=== PATIENT | male | born 1995 | race African-American/Black ===

== ENCOUNTER 2024-08-23 07:31 | Emergency (ER) | payer MEDICAID, OTHER ==
[~2024-08-23] VITALS: Ht 193 cm; Wt 82.4 kg
[2024-08-23 07:40] VITALS: RESP 17
--- NOTE | 2024-08-23 08:14 | ED.PDOC ---
SOB-HPI HPI Comments 29Y M with PMHx DVT presents to ED for chief complaint SOB. Pt states SOB began this morning shortly after waking up. Pt says he is currently taking a blood thinner for h/o DVT. Pt denies swelling. Pt drinks alcohol occasionally and smokes marijuana. Pt denies tobacco use. No known allergies. Chief Complaint: Shortness of Breath Time Seen by MD: 07:55 Primary Care Provider: NONE Reviewed notes: Medications, Allergies Information Source: Patient Mode of Arrival: Ambulatory Severity: Mild Timing: Hours Duration: Since onset Context: At Rest PE Risk Factors: None History of: DVT/PE Modifying Factors: Nothing Associated Signs and Symptoms: None Past Medical History Past Medical History (Other): DVT Surgical History: Denies all surgeries Family History Family History: Unknown Social History Smoker: Non-Smoker Alcohol: Occasionally Drugs: Marijuana Lives In: Home Constitutional: denies: chills, diaphoresis, fatigue, fever, malaise, sweats, weakness, others EENTM: denies: blurred vision, double vision, ear bleeding, ear discharge, ear drainage, ear pain, ear ringing, eye pain, eye redness, hearing loss, mouth pain, mouth swelling, nasal discharge, nose bleeding, nose congestion, nose pain, photophobia, tearing, throat pain, throat swelling, voice changes, others Respiratory: reports: shortness of breath; denies: cough, hemoptysis, orthopnea, SOB at rest, SOB with excertion, stridor, wheezing, others Cardiovascular: denies: chest pain, dizzy spells, diaphoresis, Dyspnea on exertion, edema, irregular heart beat, left arm pain, lightheadedness, palpitations, PND, syncope, others Gastrointestinal: denies: abdomen distended, abdominal pain, blood streaked bowels, constipated, diarrhea, dysphagia, difficulty swallowing, hematemesis, melena, nausea, poor appetite, poor fluid intake, rectal bleeding, rectal pain, vomiting, others Genitourinary: denies: burning, dysuria, flank pain, frequency, hematuria, incontinence, penile discharge, penile sore, pain, testicle pain, testicle swe lling, urgency, others Neurological: denies: dizziness, fainting, headache, left sided numbness, left sided weakness, numbness, paresthesia, pre-existing deficit, right sided numbness, right sided weakness, seizure, speech problems, tingling, tremors, weakness, others Musculoskeletal: denies: back pain, gout, joint pain, joint swelling, muscle pain, muscle stiffness, neck pain, others Integumetry: denies: bruises, change in color, change in hair/nails, dryness, laceration, lesions, lumps, rash, wounds, others Allergic/Immunocompromised: denies: Difficulty Healing, Frequent Infections, Hives, Itching, others Hematologic/Lymphatic: denies: anemia, blood clots, easy bleeding, easy bruising, swollen glands, others Endocrine: denies: excessive hunger, excessive sweating, excessive thirst, excessive urination, flushing, intolerance to cold, intolerance to heat, unexplained weight gain, unexplained weight loss, others Psychiatric: denies: anxiety, bipolar disorder, depression, hopeless, panic disorder, schizophrenia, sleepless, suicidal, others All Other Systems: Reviewed and Negative Physical Exam General Appearance: Moderate Distress, Normal HEENT: Normal ENT Inspection, Pharynx Normal, TMs Normal Neck: Full Range of Motion, Non-Tender, Normal, Normal Inspection Respiratory: Chest Non-Tender, Lungs Clear, No Accessory Muscle Use, No Respiratory Distress, Normal Breath Sounds Cardiovascular: No Edema, No JVD, No Murmur, No Gallop, Normal Peripheral Pulses, Regular Rate/Rhythm Breast Exam: Deferred Gastrointestinal: No Organomegaly, Non Tender, No Pulsatile Mass, Normal Bowel Sounds, Soft Genitalia: Deferred Pelvic: Deferred Rectal: Deferred Extremities: No calf tenderness, Normal capillary refill, Normal inspection, Normal range of motion, Non-tender, No pedal edema Musculoskeletal : Apperance: Normal Neurologic: Alert, 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 Was a procedure done?: No Differential Dx Differential Diagnosis: Anxiety, Asthma, Bronchitis, CHF, COPD, Other (DVT) X-Ray, Labs, Meds, VS Vital Signs Date Time Temp Pulse Resp B/P (MAP) Pulse Ox O2 Delivery O2 Flow Rate FiO2 08/23/24 09:21 97.8 69 16 131/80 (97) 100 97.8 08/23/24 07:41 97.4 76 20 133/69 (90) 99 08/23/24 07:40 17 Room Air* 0 21 Lab Test 08/23/24 08:25 Range/Units D-Dimer, Quantitative 0.60 H 0.0-0.49 mg/L U [address] [address] Ph: [phone] DIAGNOSTIC IMAGING Diagnostic Imaging Report : [id number] Signed PATIENT: BEL LEBLANC ACCT: [id number] UNIT: [id number] : 1995 LOC: ER ROOM / BED: / AGE / SEX: 29 / M ADM STATUS: REG ER SERVICE 9 ORDERING PHYSICIAN: MATTIE GONZALES MD PROCEDURE(s): CXRP - CHEST PORTABLE REASON: sob ORDER NUMBER(s): [id number], ACCESSION NUMBER(s): [id number] CHEST RADIOGRAPH Indication: sob Technique: Single frontal view of the chest was obtained COMPARISON: None FINDINGS: Lines and Tubes: None Lungs: Clear Pleura: No effusion. No pneumothorax. Cardiomediastinal contours: Unremarkable Bones: Unremarkable IMPRESSION: No acute disease. ATED BY: CUCO RANDHAWA MD DICTATED DATE/TIME: 08/23/24829 SIGNED BY: CUCO RANDHAWA MD SIGNED DATE/TIME: 08/23/24829 CC: [place] [id number] Ph: [phone] DIAGNOSTIC IMAGING Diagnostic Imaging Report : [id number] Signed PATIENT: BEL LEBLANC ACCT: [id number] UNIT: [id number] : 1995 LOC: ER ROOM / BED: / AGE / SEX: 29 / M ADM STATUS: REG ER SERVICE 9 ORDERING PHYSICIAN: MATTIE GONZALES MD PROCEDURE(s): BLDVT - BiLat Lower DVT REASON: dvt ORDER NUMBER(s): [id number], ACCESSION NUMBER(s): [id number] Bilateral lower extremity venous duplex Clinical History: dvt Comparison: None Technique: Duplex Doppler evaluation of the deep venous systems of both lower extremities from the common femoral veins to the popliteal veins including color Doppler and spectral/pulsed waveform analysis was performed. Findings: RIGHT SIDE: The common femoral vein demonstrates appropriate compressibility and waveform variability. There is compressibility/patency of the great saphenous vein at the proximal thigh. The femoral vein demonstrates appropriate compressibility and waveform variability. The deep femoral vein demonstrates appropriate compressibility and waveform variability. The popliteal vein demonstrates appropriate compressibility and waveform variability. There is color flow at the tibioperoneal trunk and in the posterior tibial vein. LEFT SIDE: The common femoral vein demonstrates appropriate compressibility and waveform variability. There is compressibility/patency of the great saphenous vein at the proximal thigh. The proximal femoral vein is not compressible and contains occlusive DVT. The mid distal segments are patent. The deep femoral vein is patent. The popliteal vein demonstrates large partially occlusive DVT. The tibioperoneal trunk is occluded. The posterior tibial vein shows doppler patency. Impression: Right lower extremity: No evidence of DVT. Left lower extremity: Acute occlusive DVT in the proximal femoral vein. Large partially occlusive DVT noted in the tibioperoneal trunk and popliteal vein. Dr. Gonzales was notified of findings by the technologist upon completion of the exam. ATED BY: CAROLYN OSEI MD DICTATED DATE/TIME: 08/23/24932 SIGNED BY: CAROLYN OSEI MD SIGNED DATE/TIME: 08/23/24932 CC: Patient alert. Complaining of shortness a breath. Vitals stable. Answering all questions. Ultrasound does reveal DVT. He is currently on blood thinner. Unknown whether he is compliant. Risk factor. CT chest. Reviewed his previous visit. Explained to the patient. Continue cardiac monitoring. Time of 1ST Reevaluation: 08:25 Reevaluation 1ST: Unchanged Patient Education/Counseling: Diagnosis, Treatment Family Education/Counseling: No Family Present Additional Information I reviewed the following notes from patient's past medical encounters: None. The following tests were ordered, and results were reviewed by me: D-dimer, CXR, Bilateral lower ext DVT u/s Additional Information was gathered from interviewing the following independent historians: None. I reviewed and agreed with the following test results read by other providers: CXR, Bilateral lower ext DVT u/s I discussed treatment and results with medical personnel and hospitalist. 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 Electronically submitted by Stacey Bagley ([employer]). I personally scribed for MATTIE GONZALES MD ([email or web address]) on 08/23/24 at 10:38. Electronically submitted by Stacey Bagley ([employer]). MATTIE GONZALES MD Aug 23, 2024 08:14
--- NOTE | 2024-08-23 08:32 | DVH ---
CHEST RADIOGRAPH Indication: sob Technique: Single frontal view of the chest was obtained COMPARISON: None FINDINGS: Lines and Tubes: None Lungs: Clear Pleura: No effusion. No pneumothorax. Cardiomediastinal contours: Unremarkable Bones: Unremarkable IMPRESSION: No acute disease.
[2024-08-23 09:21] VITALS: BP 131/80; PULSE 69; RESP 16; TEMP 97.8; O2SAT 100
--- NOTE | 2024-08-23 09:36 | DVH ---
Bilateral lower extremity venous duplex Clinical History: dvt Comparison: None Technique: Duplex Doppler evaluation of the deep venous systems of both lower extremities from the common femora l veins to the popliteal veins including color Doppler and spectral/pulsed waveform analysis was perf ormed. Findings: RIGHT SIDE: The common femoral vein demonstrates appropriate compressibility and waveform variability. There is compressibility/patency of the great saphenous vein at the proximal thigh. The femoral vein demonstrates appropriate compressibility and waveform variability. The deep femoral vein demonstrates appropriate compressibility and waveform variability. The popliteal vein demonstrates appropriate compressibility and waveform variability. There is color flow at the tibioperoneal trunk and in the posterior tibial vein. LEFT SIDE: The common femoral vein demonstrates appropriate compressibility and waveform variability. There is compressibility/patency of the great saphenous vein at the proximal thigh. The proximal femoral vein is not compressible and contains occlusive DVT. The mid distal segments are patent. The deep femoral vein is patent. The popliteal vein demonstrates large partially occlusive DVT. The tibioperoneal trunk is occluded. The posterior tibial vein shows doppler patency. Impression: Right lower extremity: No evidence of DVT. Left lower extremity: Acute occlusive DVT in the proximal femoral vein. Large partially occlusive DV T noted in the tibioperoneal trunk and popliteal vein. Dr. Diaz was notified of findings by the technologist upon completion of the exam.
== END 2024-08-23 10:18 | disposition left against medical advice (07) ==
LOC: ER 07:31
DX: I82.402 Acute embolism and thrombosis of unspecified deep veins of left lower extremity (principal); F12.90 Cannabis use, unspecified, uncomplicated; Z79.01 Long term (current) use of anticoagulants
CPT/HCPCS: 36415; 71045; 85379; 93970